=== PATIENT | female | born 1965 | race Caucasian/White ===

== ENCOUNTER → 2017-04-14 | Outpatient (CLI) | payer BC | LOC: FIMAGING 07:40 | PROVIDERS: ATTEND Physician Assistant | DX: Z12.31 Encounter for screening mammogram for malignant neoplasm of breast (principal); Z80.3 Family history of malignant neoplasm of breast | CPT/HCPCS: G0202 ==

== ENCOUNTER → 2018-05-03 | Outpatient (CLI) | payer BC | LOC: FIMAGING 10:23 | PROVIDERS: ATTEND Physician Assistant | DX: Z12.31 Encounter for screening mammogram for malignant neoplasm of breast (principal); Z80.3 Family history of malignant neoplasm of breast ==

== ENCOUNTER → 2019-05-09 | Outpatient (CLI) | payer BC | LOC: FIMAGING 13:23 ==